=== PATIENT | male | born 1945 | race Caucasian/White ===

== ENCOUNTER 2020-04-26 06:42 | Emergency (ER) | payer BC, MEDICARE, OTHER ==
--- NOTE | 2020-04-26 07:27 | EDM.PDOC ---
ED HPI GENERAL MEDICAL PROBLEM - General Chief Complaint: Upper Extremity Injury/Pain Stated Complaint: right thumb is sore and painful Time Seen by Provider: 04/26/20 07:19 Source of Information: Reports: Patient, RN Notes Reviewed History Limitations: Reports: No Limitations - History of Present Illness INITIAL COMMENTS - FREE TEXT/NARRATIVE: 74-year-old gentleman presents emergency department today with a sliver into his right thumb, he was working with some wood [employer] over the weekend he has been unable to get this out - Related Data Allergies Allergy/AdvReac Type Severity Reaction Status Date / Time No Known Allergies Allergy Verified 04/26/20 07:01 Home Meds: Home Meds Aspirin [Halfprin] 81 mg PO DAILY 04/26/20 [History] Cholecalciferol (Vitamin D3) [Vitamin D] 1,000 unit PO DAILY 04/26/20 [History] Levothyroxine 25 mcg PO ACBREAKFAST 04/26/20 [History] Multivitamin [Multivitamins] 1 tab PO DAILY 04/26/20 [History] Omeprazole 20 mg PO ACBREAKFAST 04/26/20 [History] Rosuvastatin [Crestor] 10 mg PO DAILY 04/26/20 [History] Warfarin [Coumadin] 5 mg PO ASDIRECTED 04/26/20 [History] lisinopriL [Lisinopril] 5 mg PO DAILY 04/26/20 [History] Past Medical History HEENT History: Reports: Impaired Vision Cardiovascular History: Reports: High Cholesterol Gastrointestinal History: Reports: GERD Neurological History: Reports: CVA, TIA Endocrine/Metabolic History: Reports: Diabetes, Type II, Hypothyroidism Hematologic History: Reports: Anticoagulation Therapy Oncologic (Cancer) History: Reports: Other (See Below) Other Oncologic History: tonsils - Infectious Disease History Infectious Disease History: Reports: Chicken Pox, Measles, Mumps, Shingles - Past Surgical History Head Surgeries/Procedures: Reports: None HEENT Surgical History: Reports: Adenoidectomy, Tonsillectomy Cardiovascular Surgical History: Reports: Other (See Below) GI Surgical History: Reports: Appendectomy Endocrine Surgical History: Reports: None Neurological Surgical History: Reports: None Musculoskeletal Surgical History: Reports: Arthroscopic Knee, Shoulder Surgery, Other (See Below) Oncologic Surgical History: Reports: None Dermatological Surgical History: Reports: None Social & Family History - Tobacco Use Smoking Status *Q: Current Some Day Smoker Years of Tobacco use: 10 Packs/Tins Daily: 1 Used Tobacco, but Quit: No Second Hand Smoke Exposure: No - Caffeine Use Caffeine Use: Reports: Coffee - Alcohol Use Days Per Week of Alcohol Use: 7 Number of Drinks Per Day: 1 Total Drinks Per Week: 7 - Recreational Drug Use Recreational Drug Use: No Review of Systems - Review of Systems Review Of Systems: See Below Musculoskeletal: Reports: Other (Finger pain) Skin: Reports: Wound ED EXAM, GENERAL - Physical Exam Exam: See Below Free Text/Narrative:: Examination of the right thumb I do not appreciate any erythema he does have a callus over this area it is tender to the touch it is located on the distal tip palmar surface digit #1 radial pulses +2 Course - Vital Signs Last Recorded V/S: Last Vital Signs Temp 98.9 F 04/26/20 07:06 Pulse 61 04/26/20 07:06 Resp 16 04/26/20 07:06 BP 158/58 H 04/26/20 07:06 Pulse Ox 99 04/26/20 07:06 Departure - Departure Time of Disposition: 08:15 Disposition: Home, Self-Care 01 Condition: Fair Clinical Impression: Splinter - Discharge Information Referrals: Paul Ferrera MD [Primary Care Provider] - Forms: ED Department Discharge, ED Return to Work/School Form Additional Instructions: Try the home remedies that were discussed, follow-up with primary care in 3 to 5 days if not better Sepsis Event Note (ED) - Evaluation Sepsis Screening Result: No Definite Risk - Focused Exam Vital Signs: Vital Signs Temp Pulse Resp BP Pulse Ox 04/26/20 07:06 98.9 F 61 16 158/58 H 99 04/26/20 07:00 98.9 F 61 16 158/58 H 99 - Assessment/Plan Plan: Assessment Acuity = acute Site and laterality = possible foreign body [place] wood splinter right thumb Etiology = woodworking Manifestations = none Location of injury = Home Lab values = x-ray did not reveal a foreign body I did bedside ultrasound I could not appreciate a foreign body or it was too small to be identified by the ultrasound Plan His plan is he is going to do some home remedy techniques such as soaking and Epson salt to see if he can soften this area up and possibly identify the foreign body I did not feel comfortable doing blind exploration on his thumb without having any idea of the object going after. His tetanus is up-to-date him follow-up primary care 3 to 5 days if not better This note was dictated using [employer] voice recognition software please call with any questions on syntax or grammar.
--- NOTE | 2020-04-26 07:56 | CRLCR ---
Indication: Splinter in thumb with pain Technique: Right thumb 3 views Comparison: None Findings: Bones: Alignment is normal. No fractures or bone lesions. Joint spaces: Unremarkable. Soft tissues: Soft tissues are unremarkable. No radiopaque foreign body. However, wood splinters are often difficult to visualize on x-ray. Dictated by Jose Hogue MD @ 04/26/2020 7:54:42 AM Dictated by: Jose Hogue MD @ 04/26/2020 07:54:47 (Electronically Signed)
== END 2020-04-26 08:28 | disposition home or self-care (01) ==
LOC: JP.ED 06:42
DX: S60.351A Superficial foreign body of right thumb, initial encounter (principal); E78.00 Pure hypercholesterolemia, unspecified; K21.9 Gastro-esophageal reflux disease without esophagitis; E11.9 Type 2 diabetes mellitus without complications; E03.9 Hypothyroidism, unspecified; F17.210 Nicotine dependence, cigarettes, uncomplicated; Z79.82 Long term (current) use of aspirin; Z79.899 Other long term (current) drug therapy; Z86.73 Personal history of transient ischemic attack (TIA), and cerebral infarction without residual deficits; W45.8XXA Other foreign body or object entering through skin, initial encounter
CPT/HCPCS: 73140-F5; 99282; 99284-25

== ENCOUNTER 2021-04-24 15:17 | Emergency (ER) | payer MEDICARE ==
--- NOTE | 2021-04-24 15:45 | EDM.PDOC ---
<OfficerHeriberto - Last Filed: 04/24/21 15:59> ED HPI GENERAL MEDICAL PROBLEM - General Chief Complaint: Syncope Stated Complaint: MEDICAL VIA [facility] Time Seen by Provider: 04/24/21 15:36 Source of Information: Reports: Patient, EMS, RN Notes Reviewed History Limitations: Reports: No Limitations - History of Present Illness INITIAL COMMENTS - FREE TEXT/NARRATIVE: 75-year-old gentleman presents emergency services today via EMS services., Plaint of syncopal event. He states that he was sitting at a local establishment having a sandwich and a beer became lightheaded sweaty was then lowered to the ground by bystanders he states he is feels back to his normal self at this time denies any chest pain nausea vomiting or shortness of breath - Related Data Allergies Allergy/AdvReac Type Severity Reaction Status Date / Time No Known Allergies Allergy Verified 04/24/21 15:29 Home Meds: Home Meds Aspirin [Halfprin] 81 mg PO DAILY 04/26/20 [History] Cholecalciferol (Vitamin D3) [Vitamin D] 1,000 unit PO DAILY 04/26/20 [History] Levothyroxine 25 mcg PO ACBREAKFAST 04/26/20 [History] Multivitamin [Multivitamins] 1 tab PO DAILY 04/26/20 [History] Omeprazole 20 mg PO ACBREAKFAST 04/26/20 [History] Rosuvastatin [Crestor] 10 mg PO DAILY 04/26/20 [History] Warfarin [Coumadin] 5 mg PO ASDIRECTED 04/26/20 [History] lisinopriL [Lisinopril] 5 mg PO DAILY 04/26/20 [History] glipiZIDE [Glucotrol XL] 1 tab PO DAILY 04/24/21 [History] Past Medical History HEENT History: Reports: Impaired Vision Cardiovascular History: Reports: High Cholesterol Gastrointestinal History: Reports: GERD Musculoskeletal History: Reports: None Neurological History: Reports: CVA, TIA Endocrine/Metabolic History: Reports: Diabetes, Type II, Hypothyroidism Hematologic History: Reports: Anticoagulation Therapy Oncologic (Cancer) History: Reports: Other (See Below) Other Oncologic History: tonsils - Infectious Disease History Infectious Disease History: Reports: Chicken Pox, Measles, Mumps, Shingles - Past Surgical History Head Surgeries/Procedures: Reports: None HEENT Surgical History: Reports: Adenoidectomy, Tonsillectomy Cardiovascular Surgical History: Reports: Other (See Below) GI Surgical History: Reports: Appendectomy Endocrine Surgical History: Reports: None Neurological Surgical History: Reports: None Musculoskeletal Surgical History: Reports: Arthroscopic Knee, Shoulder Surgery, Other (See Below) Oncologic Surgical History: Reports: None Dermatological Surgical History: Reports: None Social & Family History - Tobacco Use Tobacco Use Status *Q: Light Tobacco User Years of Tobacco use: 50 Packs/Tins Daily: 1 Used Tobacco, but Quit: No Second Hand Smoke Exposure: No - Caffeine Use Caffeine Use: Reports: Coffee, Soda - Alcohol Use Days Per Week of Alcohol Use: 1 Number of Drinks Per Day: 1 Total Drinks Per Week: 1 - Recreational Drug Use Recreational Drug Use: No ED ROS GENERAL - Review of Systems Review Of Systems: See Below Constitutional: Reports: No Symptoms HEENT: Reports: No Symptoms Respiratory: Reports: No Symptoms Cardiovascular: Reports: Syncope GI/Abdominal: Reports: No Symptoms : Reports: No Symptoms Musculoskeletal: Reports: No Symptoms Neurological: Reports: Syncope ED EXAM, GENERAL - Physical Exam Exam: See Below Exam Limited By: No Limitations General Appearance: Alert, WD/WN, No Apparent Distress Respiratory/Chest: No Respiratory Distress, Lungs Clear, Normal Breath Sounds, No Accessory Muscle Use, Chest Non-Tender Cardiovascular: Regular Rate, Rhythm, No Murmur GI/Abdominal: Soft, Non-Tender Extremities: No Pedal Edema #1 Interpretation EKG Date: 04/24/21 Time: 15:59 Rhythm: NSR Hammond: LAD-Left Hammond Deviation P-Wave: Present QRS: Normal ST-T: Normal QT: Normal Comparison: NA - No Prior EKG Departure - Departure Disposition: Home, Self-Care 01 Clinical Impression: Vasovagal syncope, Hyperkalemia Instructions: Near-Syncope, [id number] Referrals: PCP,Unknown [Primary Care Provider] - Forms: ED Department Discharge Care Plan Goals: Continue activity and diet as tolerated, consider rechecking at anytime in the near future if symptoms are recurring. No change in medications. <Manuel Duffy - Last Filed: 04/24/21 21:08> Course - Vital Signs Last Recorded V/S: Last Vital Signs Temp 97 F 04/24/21 15:22 Pulse 71 04/24/21 17:08 Resp 15 04/24/21 17:08 BP 141/65 H 04/24/21 17:08 Pulse Ox 99 04/24/21 17:08 - Orders/Labs/Meds Orders: Active Orders 24 hr Category Date Time Status Peripheral IV Insertion Adult [OM.PC] Urgent Oth 04/24/21 16:58 Ordered EKG 12 Lead [EK] Stat Ther 04/24/21 15:43 Ordered Labs: Laboratory Tests 04/24/21 04/24/21 04/24/21 Range/Units 15:45 15:45 15:45 WBC 9.7 (4.5-11.0) K/uL RBC 4.33 (4.30-5.90) M/uL Hgb 13.4 D (12.0-15.0) g/dL Hct 41.1 (40.0-54.0) % MCV 95 (80-98) fL MCH 31 (27-31) pg MCHC 33 (32-36) % Plt Count 233 (150-400) K/uL Neut % (Auto) 85.3 H (36-66) % Lymph % (Auto) 6.8 L (24-44) % [place] % (Auto) 7.5 H (2-6) % Eos % (Auto) 0.3 L (2-4) % Baso % (Auto) 0.1 (0-1) % Sodium 138 L (140-148) mmol/L Potassium 6.3 H* (3.6-5.2) mmol/L Chloride 103 (100-108) mmol/L Carbon Dioxide 29 (21-32) mmol/L Anion Gap 12.3 (5.0-14.0) mmol/L BUN 19 H (7-18) mg/dL Creatinine 1.9 H (0.8-1.3) mg/dL Est Cr Clr Drug Dosing 32.21 mL/min Estimated GFR (MDRD) 35 L (>60) Glucose 124 H (74-106) mg/dL Calcium 9.0 (8.5-10.1) mg/dL Troponin I < 0.017 (0.000-0.056) ng/mL Ethyl Alcohol < 3 mg/dL 04/24/21 Range/Units 19:05 WBC (4.5-11.0) K/uL RBC (4.30-5.90) M/uL Hgb (12.0-15.0) g/dL Hct (40.0-54.0) % MCV (80-98) fL MCH (27-31) pg MCHC (32-36) % Plt Count (150-400) K/uL Neut % (Auto) (36-66) % Lymph % (Auto) (24-44) % [place] % (Auto) (2-6) % Eos % (Auto) (2-4) % Baso % (Auto) (0-1) % Sodium (140-148) mmol/L Potassium 5.2 (3.6-5.2) mmol/L Chloride (100-108) mmol/L Carbon Dioxide (21-32) mmol/L Anion Gap (5.0-14.0) mmol/L BUN (7-18) mg/dL Creatinine (0.8-1.3) mg/dL Est Cr Clr Drug Dosing mL/min Estimated GFR (MDRD) (>60) Glucose (74-106) mg/dL Calcium (8.5-10.1) mg/dL Troponin I (0.000-0.056) ng/mL Ethyl Alcohol mg/dL Meds: Medications Discontinued Medications Generic Name Dose Route Start Last Admin Trade Name Freq PRN Reason Stop Dose Admin Furosemide 20 mg 04/24/21 17:01 04/24/21 17:19 Furosemide 20 Mg/2 Ml Vial IVPUSH 04/24/21 17:02 20 mg ONETIME ONE Administration Sodium Chloride 1,000 mls @ 999 mls/hr 04/24/21 17:00 04/24/21 17:17 Normal Saline IV 999 mls/hr ASDIRECTED KELBY Administration Sodium Chloride 10 ml 04/24/21 17:01 04/24/21 17:17 Sodium Chloride 0.9% 10 Ml Syringe FLUSH 10 ml ASDIRECTED PRN Administration Keep Vein Open - Re-Assessments/Exams Free Text/Narrative Re-Assessment/Exam: 04/24/21 19:06 Care turned over from Officer pending a second potassium. This is pending. Patient remains asymptomatic. 04/24/21 19:33 Potassium is now 5.2, patient was discharged asymptomatic. Departure - Departure Time of Disposition: 19:50 Sepsis Event Note (ED) - Focused Exam Vital Signs: Vital Signs Temp Pulse Resp BP Pulse Ox 04/24/21 17:08 71 15 141/65 H 99 04/24/21 15:22 97 F 63 12 143/59 H 98 04/24/21 15:18 97 F 63 12 143/59 H 98
[2021-04-24] MEDS: Sodium Chloride 0.9% 10 ML Syringe FLUSH PRN (17:17)
[2021-04-24] MEDS: Sodium Chloride 0.9% 1,000 ML IV SCH (17:17)
[2021-04-24] MEDS: Furosemide 20 MG/2 ML VIAL IVPUSH ONE (17:19)
== END 2021-04-24 19:51 | disposition home or self-care (01) ==
LOC: JP.ED 15:17
DX: E87.5 Hyperkalemia (principal); R55 Syncope and collapse; E78.00 Pure hypercholesterolemia, unspecified; K21.9 Gastro-esophageal reflux disease without esophagitis; E11.9 Type 2 diabetes mellitus without complications; E03.9 Hypothyroidism, unspecified; Z79.01 Long term (current) use of anticoagulants; Z79.84 Long term (current) use of oral hypoglycemic drugs; Z79.82 Long term (current) use of aspirin; Z79.899 Other long term (current) drug therapy; Z86.73 Personal history of transient ischemic attack (TIA), and cerebral infarction without residual deficits; Z72.0 Tobacco use
CPT/HCPCS: 36415; 80048; 80307; 84132; 84484; 85025; 93005; 96374; 99284; J1940; J7030

== ENCOUNTER 2022-01-08 12:08 | Emergency (ER) | payer MEDICARE ==
[2022-01-08] MEDS ORDERED: Sodium Chloride 0.9% 10 ML Syringe FLUSH PRN (12:30)
[2022-01-08 12:47] LABS: ESTIMATED GFR 49 mL/min (>60)
[2022-01-08] MEDS ORDERED: Phytonadione 10 MG in Sodium Chloride 0.9% 50 ML IV ONE (12:56)
[2022-01-08] MEDS ORDERED: niCARdipine HCl 25 MG in Sodium Chloride 0.9% 240 ML IV SCH (13:00)
[2022-01-08] MEDS ORDERED: Factor IX Complex Human 500 UNIT VIAL IVPUSH ONE ×2 (13:27→14:00)
[2022-01-08 13:38] LABS: CORONAVIRUS COVID-19 NAA NEGATIVE (NEGATIVE)
== END 2022-01-08 14:35 ==
LOC: JP.ED 12:08
DX: S01.81XA Laceration without foreign body of other part of head, initial encounter (principal); I62.9 Nontraumatic intracranial hemorrhage, unspecified; E11.65 Type 2 diabetes mellitus with hyperglycemia; I10 Essential (primary) hypertension; E87.6 Hypokalemia; E03.9 Hypothyroidism, unspecified; E78.00 Pure hypercholesterolemia, unspecified; K21.9 Gastro-esophageal reflux disease without esophagitis; F17.210 Nicotine dependence, cigarettes, uncomplicated; Z86.73 Personal history of transient ischemic attack (TIA), and cerebral infarction without residual deficits; Z20.822 Contact with and (suspected) exposure to COVID-19; Z79.899 Other long term (current) drug therapy; Z79.01 Long term (current) use of anticoagulants; W19.XXXA Unspecified fall, initial encounter
CPT/HCPCS: 0241U; 36415; 36430; 70450; 80053; 81001; 82550; 85025; 85610; 85730; 86850; 86900; 86901; 93005; 96365; 96366; 96368; 96375; 99285; J3430; J3490; J7050; J7168; P9017; 93010